=== PATIENT | female | born 1945 | race Two or more races ===

== ENCOUNTER 2018-01-23 07:50 | Inpatient (IN) | payer MEDICARE ==
[~2018-01-23] VITALS: Ht 154.9 cm; Wt 78.1 kg
[2018-01-23] VITALS (7 sets, daily range): BP systolic 137–192; BP diastolic 75–130
[2018-01-23] MEDS ORDERED: SODIUM CHLORIDE FLUSH 10ML SYR IVF ONE (08:30)
[2018-01-23] MEDS ORDERED: [UNRECOGNIZED DRUG - REMARK] PO (08:33)
[2018-01-23 08:46] LABS: INTERNATIONAL NORMALIZED RATIO 0.95 (0.93-1.1); PROTHROMBIN TIME 9.8 Seconds (9.6-11.5)
[2018-01-23 08:50] LABS: ALANINE AMINOTRANSFERASE 24 U/L (12-78); ALBUMIN 3.6 g/dL (3.4-5.0); ANION GAP 11 mmol/L (5-15); CALCIUM 9.1 mg/dL (8.5-10.1); CHLORIDE 105 mmol/L (98-107); CREATININE 1.04 mg/dL (0.55-1.02)
[2018-01-23 08:55] LABS: ALKALINE PHOSPHATASE 103 U/L (45-117); BILIRUBIN,TOTAL 0.3 mg/dL (0.2-1.0); TOTAL PROTEIN 7.7 g/dL (6.4-8.2); TROPONIN I < 0.015 ng/mL (0.000-0.045)
[2018-01-23] MEDS ORDERED: LIDOCAINE-MPF 1%, 5ML INFIL ONE (09:00)
[2018-01-23 09:05] LABS: BASOPHILS # (AUTO) 0.03 x10^3/uL (0-0.1); BASOPHILS % (AUTO) 0 % (0-1); EOSINOPHILS # (AUTO) 0.02 x10^3/uL (0-0.4); EOSINOPHILS % (AUTO) 0 % (1-7); LYMPHOCYTES % (AUTO) 10 % (22-44); MD NO; MEAN CORPUSCULAR HEMOGLOBIN 28.9 pg (27.0-34.8); MEAN CORPUSCULAR HGB CONC 33.4 g/dL (32.4-35.8); MEAN CORPUSCULAR VOLUME 86.5 fL (80-100); MEAN PLATELET VOLUME 10.9 fL (7.4-10.4); MONOCYTES % (AUTO) 4 % (2-9); NEUTROPHILS # (AUTO) 11.92 x10^3/uL (1.8-6.8); NEUTROPHILS % (AUTO) 86 % (42-75); PLATELET COUNT 270 x10^3/uL (130-400); RED BLOOD COUNT 4.15 x10^6/uL (3.82-5.3); RED CELL DISTRIBUTION WIDTH 14.7 % (9.6-15.2)
[2018-01-23] MEDS ORDERED: LIDOCAINE-MPF 1%, 2ML ONE (09:45)
[2018-01-23] MEDS ORDERED: OMNIPAQUE 350 MG/ML, 100ML BOTTLE ONE (09:46)
[2018-01-23] MEDS ORDERED: LIDOCAINE-MPF 2% ,5ML ONE (09:48)
[2018-01-23] MEDS: ENOXAPARIN 40 MG/0.4 ML SQ SCH (13:30)
[2018-01-23] MEDS ORDERED: ONDANSETRON ODT 4 MG PO PRN (13:30)
[2018-01-23] MEDS ORDERED: ONDANSETRON 2MG/ML, 2ML IVPush PRN (13:30)
[2018-01-23] MEDS ORDERED: ACETAMINOPHEN 325 MG TABLET PO PRN (13:30)
[2018-01-23 14:07] LABS: TROPONIN I < 0.015 ng/mL (0.000-0.045)
[2018-01-23 14:13] LABS: FREE T4 (FREE THYROXINE) 1.18 ng/dL (0.76-1.46); THYROID STIMULATING HORMONE 0.313 mIU/L (0.358-3.740)
[2018-01-23 15:10] LABS: HEMOGLOBIN A1C 5.9 % (4.2-6.3)
[2018-01-23] MEDS: SODIUM CHLORIDE 0.9% 1,000 ML IV SCH (15:22)
[2018-01-23 15:48] LABS: MICROSCOPIC NOT IND
[2018-01-23 15:59] LABS: CULTURE INDICATED? NO
[2018-01-23] MEDS: LOSARTAN 50MG TABLET PO SCH (21:05)
[2018-01-23 21:06] LABS: TROPONIN I < 0.015 ng/mL (0.000-0.045)
[2018-01-24 01:05] VITALS: BP 148/79
[2018-01-24] MEDS: SODIUM CHLORIDE 0.9% 1,000 ML IV SCH (04:35)
[2018-01-24 05:39] LABS: ALBUMIN 3.1 g/dL (3.4-5.0); ANION GAP 7 mmol/L (5-15); CALCIUM 8.6 mg/dL (8.5-10.1); CHLORIDE 111 mmol/L (98-107)
[2018-01-24 05:40] LABS: BASOPHILS # (AUTO) 0.03 x10^3/uL (0-0.1); BASOPHILS % (AUTO) 0 % (0-1); EOSINOPHILS # (AUTO) 0.07 x10^3/uL (0-0.4); EOSINOPHILS % (AUTO) 1 % (1-7); LYMPHOCYTES # (AUTO) 2.36 x10^3/uL (1-3.4); LYMPHOCYTES % (AUTO) 28 % (22-44); MD NO; MEAN CORPUSCULAR HEMOGLOBIN 28.4 pg (27.0-34.8); MEAN CORPUSCULAR HGB CONC 32.8 g/dL (32.4-35.8); MEAN CORPUSCULAR VOLUME 86.6 fL (80-100); MEAN PLATELET VOLUME 10.5 fL (7.4-10.4); MONOCYTES # (AUTO) 0.72 x10^3/uL (0.2-0.8); MONOCYTES % (AUTO) 9 % (2-9); NEUTROPHILS # (AUTO) 5.27 x10^3/uL (1.8-6.8); NEUTROPHILS % (AUTO) 62 % (42-75); PLATELET COUNT 246 x10^3/uL (130-400); RED BLOOD COUNT 3.89 x10^6/uL (3.82-5.3)
[2018-01-24 05:45] LABS: ALANINE AMINOTRANSFERASE 24 U/L (12-78); ALKALINE PHOSPHATASE 90 U/L (45-117); BILIRUBIN,TOTAL 0.5 mg/dL (0.2-1.0); CHOL/HDL RATIO 2.7; CHOLESTEROL, TOTAL 148 mg/dL (140-239); CREATININE 0.85 mg/dL (0.55-1.02); HDL CHOL % 36 % (28-40); HDL CHOLESTEROL (DIRECT) 54 mg/dL (40-60); LDL CHOLESTEROL,CALCULATED 72 mg/dL (54-169); LDL/HDL RATIO 1.3 (0.5-3.0); TOTAL PROTEIN 6.7 g/dL (6.4-8.2); TRIGLYCERIDES 108 mg/dL (50-200); VLDL CHOLESTEROL 22 mg/dL (0-25)
[2018-01-24] MEDS ORDERED: LOSARTAN 50MG TABLET PO SCH (09:00)
[2018-01-24 09:50] VITALS: BP 144/81
[2018-01-24 09:53] VITALS: BP 146/89
[2018-01-24 09:58] VITALS: BP 155/90
[2018-01-24] MEDS: LOSARTAN 50MG TABLET PO SCH (10:00)
[2018-01-24 15:34] VITALS: BP 159/98
[2018-01-24] MEDS: ENOXAPARIN 40 MG/0.4 ML SQ SCH (15:40)
== END 2018-01-24 17:50 | disposition home or self-care (01) | DRG 312 ==
LOC: ED 08:50 → EDIP 11:45 → 4EST 13:51
PROVIDERS: ADMIT Hospitalist; ATTEND Hospitalist
PROC: 0CQ1XZZ Repair Lower Lip, External Approach (ICD-10-PCS; principal; 2018-01-23)
DX: R55 Syncope and collapse (principal); E87.2 Acidosis; I10 Essential (primary) hypertension; S01.511A Laceration without foreign body of lip, initial encounter; W19.XXXA Unspecified fall, initial encounter; Y93.89 Activity, other specified; Y92.89 Other specified places as the place of occurrence of the external cause; Y99.8 Other external cause status; D72.829 Elevated white blood cell count, unspecified; I07.1 Rheumatic tricuspid insufficiency; I45.10 Unspecified right bundle-branch block; K44.9 Diaphragmatic hernia without obstruction or gangrene; Z82.49 Family history of ischemic heart disease and other diseases of the circulatory system
CPT/HCPCS: 12011; 36415; 71045; 74177; 80053; 80061; 81003; 83036; 83605; 83735; 83880; 84100; 84439; 84443; 84484; 85025; 85610; 93005; 93306; 99285; Q9967; J7030